=== PATIENT | male | born 1960 | race Caucasian/White ===

== ENCOUNTER 2016-12-29 17:56 | Inpatient (IN) | payer OTHER ==
[~2016-12-29] VITALS: Ht 172.7 cm; Wt 73.0 kg
[~2016-12-29 17:56] MED LIST: AMIODARONE HYD200 MG PO; ATORVASTATIN CA40 M1 PO; CARVEDILOL12.5 M1 PO; CARVEDILOL3.125 M1 PO; COR6 PO; COREG12.5 MG PO; COU5 PO; COUMADIN1 MG PO; COUMADIN5 MG PO; COUMADIN7.5 MG PO; COZAAR50 MG PO; Coreg PO; DIG125 PO; DIGOXIN0.125 M1 PO; FAMOTIDINE20 MG PO; KLOR-CON 88 MEQ PO; KLOR-CON M1010 MEQ PO; L40 PO; LASIX20 MG PO; LASIX40 MG PO; LIPI20 PO; LIPITOR40 MG PO; LOSARTAN POTASS25 M1 PO; NORCO1 TA1 PO; PEP20 PO
[2016-12-29 18:44] LABS: BASOPHIL % 0.6 % (0-2); PLATELET COUNT 211 x10^3mcL (130-400); RED CELL DISTRIBUTION WIDTH 12.7 % (11.5-14.5)
[2016-12-29 18:52] LABS: CALCIUM 8.1 mg/dL (8.5-10.1); CARBON DIOXIDE 28.1 mmol/L (21-32); CHLORIDE SERUM 107 mmol/L (98-107); CREATININE SERUM 0.8 mg/dL (0.7-1.3); GFR1 > 60 mL/min; GLUCOSE SERUM 88 mg/dL (74-106); POTASSIUM SERUM 3.9 mmol/L (3.5-5.1); SODIUM SERUM 139 mmol/L (136-145)
[2016-12-29 18:57] LABS: ALKALINE PHOSPHATASE 103 U/L (46-116); ALT/SGPT 20 U/L (16-63); AST/SGOT 14 U/L (15-37); BILIRUBIN TOTAL 0.6 mg/dL (0.20-1.00); LIPASE 126 IU/L (73-393); TOTAL PROTEIN, SERUM 6.8 g/dL (6.4-8.2)
[2016-12-29 18:58] LABS: ALBUMIN 3.1 g/dL (3.4-5.0)
[2016-12-29 20:19] LABS: CHOLESTEROL/HDL RATIO 3.7; PHOSPHOROUS 3.8 mg/dL (2.5-4.9)
[2016-12-29 20:26] LABS: T3 TOTAL 1.13 ng/mL
[2016-12-29 20:27] LABS: FREE T4 0.98 ng/dL (0.76-1.46); FREE THYROXINE INDEX 2.9 ug/dL (1.4-4.5); T4(THYROXINE) 8.1 ug/dL (4.7-13.3)
[2016-12-29 20:46] VITALS: BP 106/63
[2016-12-30 03:42] LABS: microscopic required? NO
[2016-12-30 03:55] LABS: UA SPECIFIC GRAVITY >=1.030 (1.005-1.035); urine erythrocyte NEGATIVE (NEGATIVE)
[2016-12-30 04:27] LABS: AMPHETAMINE QUAL UR POSITIVE (NEG <=1000)
[2016-12-30 06:15] VITALS: BP 98/59
[2016-12-30 07:40] VITALS: BP 115/72
[2016-12-30 08:55] VITALS: BP 93/54
[2016-12-30 11:42] VITALS: BP 111/78
[2016-12-30 16:30] VITALS: BP 101/68
[2016-12-30 20:55] VITALS: BP 99/62
[2016-12-31 05:16] VITALS: BP 112/84
[2016-12-31 06:33] LABS: BASOPHIL % 0.5 % (0-2); PLATELET COUNT 221 x10^3mcL (130-400); RED CELL DISTRIBUTION WIDTH 12.6 % (11.5-14.5)
[2016-12-31 06:45] LABS: CALCIUM 8.7 mg/dL (8.5-10.1); CHLORIDE SERUM 104 mmol/L (98-107); CREATININE SERUM 0.9 mg/dL (0.7-1.3); GFR1 > 60 mL/min; GLUCOSE SERUM 92 mg/dL (74-106); PHOSPHOROUS 3.5 mg/dL (2.5-4.9); POTASSIUM SERUM 3.9 mmol/L (3.5-5.1); SODIUM SERUM 138 mmol/L (136-145)
[2016-12-31 09:27] VITALS: BP 112/82
[2016-12-31] MEDS ORDERED: XARELTO10 M1 PO (10:11)
[2016-12-31] MEDS ORDERED: TOP50 PO (10:13)
[2016-12-31 10:53] VITALS: BP 123/91
[2016-12-31 11:20] VITALS: BP 123/91
[2016-12-31] MEDS ORDERED: COZAAR100 MG PO (11:31)
[2016-12-31 11:46] VITALS: Ht 172.7 cm; Wt 73.0 kg
== END 2016-12-31 12:16 | disposition home or self-care (01) | DRG 309 ==
LOC: ED 17:56 → DU 19:17
PROVIDERS: Emergency Medicine; ADMIT Family Medicine
DX: I48.92 Unspecified atrial flutter (principal); E44.0 Moderate protein-calorie malnutrition; D68.69 Other thrombophilia; I48.91 Unspecified atrial fibrillation; E11.9 Type 2 diabetes mellitus without complications; E83.51 Hypocalcemia; I11.0 Hypertensive heart disease with heart failure; I50.9 Heart failure, unspecified; E78.5 Hyperlipidemia, unspecified; Z53.29 Procedure and treatment not carried out because of patient's decision for other reasons; F17.210 Nicotine dependence, cigarettes, uncomplicated; E78.00 Pure hypercholesterolemia, unspecified; K21.9 Gastro-esophageal reflux disease without esophagitis; I08.3 Combined rheumatic disorders of mitral, aortic and tricuspid valves; F15.10 Other stimulant abuse, uncomplicated; Z68.24 Body mass index [BMI] 24.0-24.9, adult; Z79.01 Long term (current) use of anticoagulants; Z91.14 Patient's other noncompliance with medication regimen; Z95.810 Presence of automatic (implantable) cardiac defibrillator; Z90.49 Acquired absence of other specified parts of digestive tract; Z79.899 Other long term (current) drug therapy; Z82.49 Family history of ischemic heart disease and other diseases of the circulatory system; Z83.3 Family history of diabetes mellitus; Z80.8 Family history of malignant neoplasm of other organs or systems
CPT/HCPCS: 82962; 83880; 84439; J2270; J3490; J7030; Q0092

== ENCOUNTER 2017-01-06 02:34 | Emergency (ER) | payer OTHER ==
[~2017-01-06 02:34] MED LIST changes: +COZAAR100 MG PO; +TOP50 PO; +XARELTO10 M1 PO
[2017-01-06 04:02] VITALS: BP 129/86
== END 2017-01-06 04:02 | disposition home or self-care (01) ==
LOC: ED 02:34
DX: K02.9 Dental caries, unspecified (principal); E78.00 Pure hypercholesterolemia, unspecified; I48.91 Unspecified atrial fibrillation; Z95.0 Presence of cardiac pacemaker
CPT/HCPCS: J2270; Q0162

== ENCOUNTER 2017-01-09 13:18 | Emergency (ER) | payer OTHER ==
[~2017-01-09] VITALS: Ht 172.7 cm; Wt 70.8 kg
[2017-01-09 13:58] LABS: BASOPHIL % 0.5 % (0-2); PLATELET COUNT 313 x10^3mcL (130-400); RED CELL DISTRIBUTION WIDTH 12.5 % (11.5-14.5)
[2017-01-09 14:00] LABS: CALCIUM 9.2 mg/dL (8.5-10.1); CARBON DIOXIDE 32.4 mmol/L (21-32); CHLORIDE SERUM 99 mmol/L (98-107); CREATININE SERUM 1.3 mg/dL (0.7-1.3); GFR1 > 60 mL/min; GLUCOSE SERUM 89 mg/dL (74-106); SODIUM SERUM 136 mmol/L (136-145)
[2017-01-09 14:11] LABS: ALBUMIN 3.7 g/dL (3.4-5.0); ALKALINE PHOSPHATASE 172 U/L (46-116); ALT/SGPT 145 U/L (16-63); AMYLASE 91 U/L (25-115); AST/SGOT 70 U/L (15-37); BILIRUBIN TOTAL 1.47 mg/dL (0.20-1.00); LIPASE 128 IU/L (73-393); MAGNESIUM 2.5 mg/dL (1.8-2.4); T4(THYROXINE) 7.6 ug/dL (4.7-13.3)
[2017-01-09 14:20] LABS: CHOLESTEROL 216 mg/dL (<200); HDL CHOLESTEROL 62 mg/dL (40-60); TOTAL PROTEIN, SERUM 8.6 g/dL (6.4-8.2)
[2017-01-09 16:08] LABS: microscopic required? NO
[2017-01-09 16:15] LABS: UA SPECIFIC GRAVITY 1.015 (1.005-1.035); urine erythrocyte NEGATIVE (NEGATIVE)
[2017-01-09] MEDS ORDERED: PENICILLIN VK500 MG PO (16:28)
[2017-01-09] MEDS ORDERED: K10 PO (16:28)
[2017-01-09] MEDS ORDERED: METOPROLOL TAR100 MG PO (16:29)
[2017-01-09] MEDS ORDERED: NOR10T PO (16:29)
[2017-01-09 16:44] LABS: AMPHETAMINE QUAL UR POSITIVE (NEG <=1000)
[2017-01-10 05:18] LABS: ALKALINE PHOSPHATASE 147 U/L (46-116); ALT/SGPT 98 U/L (16-63); AST/SGOT 30 U/L (15-37); BILIRUBIN TOTAL 0.69 mg/dL (0.20-1.00); CALCIUM 8.5 mg/dL (8.5-10.1); CARBON DIOXIDE 29.4 mmol/L (21-32); CHLORIDE SERUM 103 mmol/L (98-107); GFR1 > 60 mL/min; GLUCOSE SERUM 97 mg/dL (74-106); SODIUM SERUM 138 mmol/L (136-145); TOTAL PROTEIN, SERUM 7.1 g/dL (6.4-8.2)
[2017-01-10 10:51] VITALS: BP 109/80
== END 2017-01-10 10:51 | disposition home or self-care (01) ==
LOC: ED 13:18
PROVIDERS: Emergency Medicine; Family Medicine
DX: I48.91 Unspecified atrial fibrillation (principal); I10 Essential (primary) hypertension; E78.00 Pure hypercholesterolemia, unspecified; F17.210 Nicotine dependence, cigarettes, uncomplicated; F15.20 Other stimulant dependence, uncomplicated; Z71.6 Tobacco abuse counseling
CPT/HCPCS: 83880; 99406; J3490; J7030; J7040; Q0092

== ENCOUNTER 2017-08-31 13:18 | Inpatient (IN) | payer OTHER ==
[~2017-08-31] VITALS: Ht 172.7 cm; Wt 75.5 kg
[~2017-08-31 13:18] MED LIST changes: +K10 PO; +METOPROLOL TAR100 MG PO; +NOR10T PO; +PENICILLIN VK500 MG PO
[2017-08-31 13:26] VITALS: Ht 172.7 cm; Wt 75.5 kg
[2017-08-31 14:43] LABS: BASOPHIL % 0.2 % (0-2); PLATELET COUNT 249 x10^3mcL (130-400)
[2017-08-31 14:56] LABS: CALCIUM 7.7 mg/dL (8.5-10.1); CARBON DIOXIDE 28.7 mmol/L (21-32); CREATININE SERUM 1.4 mg/dL (0.7-1.3); POTASSIUM SERUM 4.8 mmol/L (3.5-5.1)
[2017-08-31 15:01] LABS: ALBUMIN 3.2 g/dL (3.4-5.0); TOTAL PROTEIN, SERUM 6.4 g/dL (6.4-8.2)
[2017-08-31] MEDS ORDERED: AMIODARONE HCL200 MG PO (15:21)
[2017-08-31 15:43] LABS: MAGNESIUM 2.3 mg/dL (1.8-2.4); PHOSPHOROUS 3.1 mg/dL (2.5-4.9)
[2017-08-31 15:46] LABS: T3 TOTAL 0.85 ng/mL
[2017-08-31 15:50] LABS: FREE T4 1.07 ng/dL (0.76-1.46); T4(THYROXINE) 8.7 ug/dL (4.7-13.3)
[2017-08-31 16:16] VITALS: BP 116/84
[2017-08-31 21:23] VITALS: BP 117/82
[2017-09-01 00:24] LABS: microscopic required? NO
[2017-09-01 00:42] LABS: urine erythrocyte NEGATIVE (NEGATIVE)
[2017-09-01 02:43] LABS: AMPHETAMINE QUAL UR POSITIVE (NEG <=1000)
[2017-09-01 05:55] VITALS: BP 142/64
[2017-09-01 06:12] LABS: BASOPHIL % 0.3 % (0-2); PLATELET COUNT 221 x10^3mcL (130-400); RED CELL DISTRIBUTION WIDTH 13.1 % (11.5-14.5)
[2017-09-01 06:52] LABS: CALCIUM 7.9 mg/dL (8.5-10.1); CARBON DIOXIDE 25.2 mmol/L (21-32); CHLORIDE SERUM 110 mmol/L (98-107); CREATININE SERUM 1.2 mg/dL (0.7-1.3); GFR1 > 60 mL/min; GLUCOSE SERUM 102 mg/dL (74-106); POTASSIUM SERUM 4.9 mmol/L (3.5-5.1); SODIUM SERUM 140 mmol/L (136-145)
[2017-09-01 09:13] VITALS: BP 117/78
[2017-09-01 09:17] VITALS: BP 102/66
[2017-09-01 13:15] VITALS: BP 105/68
[2017-09-01 16:16] VITALS: BP 105/68
== END 2017-09-01 16:55 | disposition home or self-care (01) | DRG 73 ==
LOC: ED 13:18 → DU 14:59
PROVIDERS: Emergency Medicine; Family Medicine
DX: G90.8 Other disorders of autonomic nervous system (principal); N17.0 Acute kidney failure with tubular necrosis; R55 Syncope and collapse; I48.91 Unspecified atrial fibrillation; I11.0 Hypertensive heart disease with heart failure; I50.9 Heart failure, unspecified; K21.9 Gastro-esophageal reflux disease without esophagitis; E78.00 Pure hypercholesterolemia, unspecified; I95.9 Hypotension, unspecified; R73.03 Prediabetes; E78.5 Hyperlipidemia, unspecified; Z90.49 Acquired absence of other specified parts of digestive tract; Z95.810 Presence of automatic (implantable) cardiac defibrillator; Z82.49 Family history of ischemic heart disease and other diseases of the circulatory system; Z83.3 Family history of diabetes mellitus; Z80.8 Family history of malignant neoplasm of other organs or systems
CPT/HCPCS: 83880; 84439; 97535-GP; J7030; Q0092

== ENCOUNTER 2018-05-09 18:14 | Inpatient (IN) | payer OTHER ==
[~2018-05-09] VITALS: Ht 172.7 cm; Wt 72.7 kg
[~2018-05-09 18:14] MED LIST changes: +AMIODARONE HCL200 MG PO
[2018-05-09 19:05] LABS: BASOPHIL % 0.4 % (0-2); PLATELET COUNT 267 x10^3mcL (130-400); RED CELL DISTRIBUTION WIDTH 12.9 % (11.5-14.5)
[2018-05-09 19:15] LABS: CALCIUM 9.1 mg/dL (8.5-10.1); CARBON DIOXIDE 28.9 mmol/L (21-32); CHLORIDE SERUM 102 mmol/L (98-107); CREATININE SERUM 1.1 mg/dL (0.7-1.3); GFR1 > 60 mL/min; GLUCOSE SERUM 95 mg/dL (74-106); POTASSIUM SERUM 4.5 mmol/L (3.5-5.1); SODIUM SERUM 135 mmol/L (136-145)
[2018-05-09 19:19] LABS: ALBUMIN 3.5 g/dL (3.4-5.0); ALKALINE PHOSPHATASE 97 U/L (46-116); ALT/SGPT 40 U/L (16-63); AST/SGOT 18 U/L (15-37); TOTAL PROTEIN, SERUM 8.5 g/dL (6.4-8.2)
[2018-05-09] MEDS ORDERED: ELIQUIS5 MG PO (20:04)
[2018-05-09] MEDS ORDERED: ATORVASTATIN CA80 M1 PO (20:04)
[2018-05-09 20:28] LABS: MAGNESIUM 2.2 mg/dL (1.8-2.4)
[2018-05-09 20:31] LABS: CHOLESTEROL/HDL RATIO 5.3
[2018-05-09 23:20] VITALS: BP 129/83
[2018-05-10 01:29] LABS: microscopic required? NO
[2018-05-10 01:59] LABS: UA SPECIFIC GRAVITY <=1.005 (1.005-1.035); urine erythrocyte NEGATIVE (NEGATIVE)
[2018-05-10 02:10] LABS: AMPHETAMINE QUAL UR POSITIVE (See below)
[2018-05-10 04:30] VITALS: BP 132/62
[2018-05-10 05:01] LABS: CALCIUM 8.4 mg/dL (8.5-10.1); CARBON DIOXIDE 24.3 mmol/L (21-32); CHLORIDE SERUM 107 mmol/L (98-107); CREATININE SERUM 1.3 mg/dL (0.7-1.3); GFR1 > 60 mL/min; GLUCOSE SERUM 171 mg/dL (74-106); POTASSIUM SERUM 4.4 mmol/L (3.5-5.1); SODIUM SERUM 140 mmol/L (136-145)
[2018-05-10 05:12] LABS: BASOPHIL % 0.1 % (0-2); PLATELET COUNT 235 x10^3mcL (130-400); RED CELL DISTRIBUTION WIDTH 12.4 % (11.5-14.5)
[2018-05-10 08:36] VITALS: Ht 172.7 cm; Wt 72.7 kg
[2018-05-10 11:59] VITALS: BP 113/64
[2018-05-10 12:00] VITALS: BP 113/64
[2018-05-10 15:18] VITALS: BP 129/69
[2018-05-10 16:18] VITALS: BP 119/69
[2018-05-10 20:37] VITALS: BP 108/62
[2018-05-11 05:43] VITALS: BP 119/81
[2018-05-11 06:40] LABS: CARBON DIOXIDE 26.4 mmol/L (21-32); CHLORIDE SERUM 109 mmol/L (98-107); CREATININE SERUM 1.2 mg/dL (0.7-1.3); GFR1 > 60 mL/min; GLUCOSE SERUM 106 mg/dL (74-106); POTASSIUM SERUM 4.4 mmol/L (3.5-5.1); SODIUM SERUM 143 mmol/L (136-145)
[2018-05-11 07:26] LABS: BASOPHIL % 0.3 % (0-2); PLATELET COUNT 261 x10^3mcL (130-400); RED CELL DISTRIBUTION WIDTH 12.1 % (11.5-14.5)
[2018-05-11 10:18] VITALS: BP 112/65
[2018-05-11 13:29] VITALS: BP 112/65
[2018-05-11 13:48] VITALS: BP 101/65
== END 2018-05-11 14:57 | disposition home or self-care (01) | DRG 314 ==
LOC: ED 18:14 → IC 19:57 → DU 19:57 → EDBEDREQTM 21:42 → EDBEDREQ 21:42 → EDBEDREQSVC 21:42 → IC 21:50 → DU 05-10 16:04
PROVIDERS: Emergency Medicine; ADMIT Internal Medicine
DX: I95.9 Hypotension, unspecified (principal); J18.9 Pneumonia, unspecified organism; G92 Toxic encephalopathy; I50.43 Acute on chronic combined systolic (congestive) and diastolic (congestive) heart failure; I24.9 Acute ischemic heart disease, unspecified; I42.9 Cardiomyopathy, unspecified; F15.10 Other stimulant abuse, uncomplicated; R09.1 Pleurisy; I48.0 Paroxysmal atrial fibrillation; I11.0 Hypertensive heart disease with heart failure; I25.10 Atherosclerotic heart disease of native coronary artery without angina pectoris; Z95.0 Presence of cardiac pacemaker; Z68.24 Body mass index [BMI] 24.0-24.9, adult; Z82.49 Family history of ischemic heart disease and other diseases of the circulatory system; Z90.49 Acquired absence of other specified parts of digestive tract; Z79.01 Long term (current) use of anticoagulants; Z83.3 Family history of diabetes mellitus; Z80.0 Family history of malignant neoplasm of digestive organs; Z23 Encounter for immunization
CPT/HCPCS: 83880; 85378; 90658; J0171; J1200; J2060; J2270; J2405; J2543; J2930; J3490; J7030; Q0092; Q9967

== ENCOUNTER 2019-05-01 10:45 | Emergency (ER) | payer SELFPAY ==
[~2019-05-01] VITALS: Ht 172.7 cm; Wt 75.3 kg
[~2019-05-01 10:45] MED LIST changes: +ATORVASTATIN CA80 M1 PO; +ELIQUIS5 MG PO
[2019-05-01 10:47] VITALS: Ht 172.7 cm; Wt 75.3 kg
[2019-05-01 11:20] LABS: BASOPHIL % 0.3 % (0-2); PLATELET COUNT 313 x10^3mcL (130-400)
[2019-05-01 11:36] LABS: CALCIUM 9.5 mg/dL (8.5-10.1); CARBON DIOXIDE 30.4 mmol/L (21-32); CHLORIDE SERUM 105 mmol/L (98-107); CREATININE SERUM 1.1 mg/dL (0.7-1.3); GFR1 > 60 mL/min; GLUCOSE SERUM 129 mg/dL (74-106); POTASSIUM SERUM 4.3 mmol/L (3.5-5.1); SODIUM SERUM 141 mmol/L (136-145)
[2019-05-01 11:41] LABS: ALBUMIN 3.7 g/dL (3.4-5.0); ALKALINE PHOSPHATASE 115 U/L (46-116); ALT/SGPT 30 U/L (16-63); AST/SGOT 24 U/L (15-37); BILIRUBIN TOTAL 0.92 mg/dL (0.20-1.00); TOTAL PROTEIN, SERUM 8.3 g/dL (6.4-8.2)
[2019-05-01 13:56] VITALS: BP 93/53
== END 2019-05-01 13:59 | disposition short-term general hospital (02) ==
LOC: ED 10:45
DX: I48.20 Chronic atrial fibrillation, unspecified (principal); I21.3 ST elevation (STEMI) myocardial infarction of unspecified site; R79.89 Other specified abnormal findings of blood chemistry; E78.00 Pure hypercholesterolemia, unspecified; K21.9 Gastro-esophageal reflux disease without esophagitis; Z98.890 Other specified postprocedural states
CPT/HCPCS: 83880; J3490; J7030; Q0092